=== PATIENT | female | born 1960 | race Caucasian/White ===

== ENCOUNTER 2018-01-16 16:57 | Inpatient (IN) | payer OTHER ==
[2018-01-16 17:20] VITALS: BMI 40.7
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
[2018-01-16] MEDS ORDERED: P-EPHED 60MG/TRIPROLIDI 2.5MG TABLET PO PRN (18:42)
[2018-01-16] MEDS ORDERED: MAGNESIUM CITRATE 300 ML BOTTLE PO PRN (18:42)
[2018-01-16] MEDS ORDERED: NICOTINE POLACRILEX 2 MG GUM BC PRN (18:42)
[2018-01-16] MEDS ORDERED: MENTHOL/PHENOL 1 EACH UD MM PRN (18:42)
[2018-01-16] MEDS ORDERED: guaiFENesin/D-METHORPHAN HB 10 ML UNIT-DOSE CUPS PO PRN (18:42)
[2018-01-16] MEDS ORDERED: IBUPROFEN 400 MG TABLET (FP) PO PRN (18:42)
[2018-01-16] MEDS ORDERED: MAG HYDROX/AL HYDROX/SIMETH 30 ML UNIT-DOSE CUP PO PRN (18:42)
[2018-01-16] MEDS ORDERED: MAGNESIUM HYDROX 2400MG/30ML ORAL SUSPENSION 30 ML CUP PO PRN (18:42)
[2018-01-16] MEDS: chlordiazePOXIDE HCL 25 MG CAPSULE PO PRN (19:50)
[2018-01-16] MEDS: ACETAMINOPHEN 325 MG TABLET (FP) PO PRN (19:52)
[2018-01-16 23:05] LABS: URINE APPEARANCE CLEAR; URINE BILIRUBIN NEGATIVE (<2.0 mg/dL); URINE COLOR LTYELLOW; URINE GLUCOSE (UA) NEGATIVE (NEGATIVE); URINE KETONE NEGATIVE (NEGATIVE); URINE LEUK ESTERASE NEGATIVE (NEGATIVE); URINE NITRITE NEGATIVE (NEGATIVE); URINE PROTEIN NEGATIVE (NEGATIVE)
[2018-01-16] MEDS: THIAMINE HCL 100 MG TABLET (FP) PO SCH (23:39)
[2018-01-16] MEDS: chlordiazePOXIDE HCL 25 MG CAPSULE PO SCH (23:39)
[2018-01-17] MEDS: ACETAMINOPHEN 325 MG TABLET (FP) PO PRN (01:37)
[2018-01-17] MEDS: MELATONIN 5 MG TABLETS PO PRN ×2 (01:37→22:30)
[2018-01-17] MEDS: chlordiazePOXIDE HCL 25 MG CAPSULE PO PRN (01:38)
[2018-01-17] MEDS: chlordiazePOXIDE HCL 25 MG CAPSULE PO SCH ×2 (05:54→10:38)
[2018-01-17] MEDS ORDERED: METHADONE HCL 10 MG TABLET PO ONE ×2 (09:04)
[2018-01-17] MEDS ORDERED: METHADONE HCL 40 MG DISPERSABLE TABLET ONE (10:35)
[2018-01-17] MEDS ORDERED: METHADONE HCL 10 MG TABLET ONE (10:35)
[2018-01-17] MEDS: PRENATAL VITAMINS W/ FOLIC ACID TABLET (FP) PO SCH (10:38)
--- NOTE | 2018-01-17 10:59 | PN ---
S Progress Note Note: pt states her dependence is xanax/klonopin not alcohol. pt will like her detox regimen changed to valium. Pt regimen will be changed as pt request.
[2018-01-17] MEDS ORDERED: METHADONE 120 MG, METHADONE 10 MG PO ONE (11:15)
[2018-01-17 12:01] LABS: ALBUMIN 2.7 g/dl (3.4-5.0); ALK PHOS 114 U/L (45-117); ANION GAP 6 MMOL/L (8-16); BILIRUBIN,TOTAL 0.4 mg/dL (0.2-1); BLOOD UREA NITROGEN 17 mg/dL (7-18); CALCIUM 7.9 mg/dL (8.5-10.1); CHLORIDE 105 mmol/L (98-107); CO2 27 mmol/L (21-32); CREATININE 0.9 mg/dL (0.55-1.3); GLUCOSE,RANDOM 212 mg/dL (74-106); POTASSIUM 3.9 mmol/L (3.5-5.1); SGOT/AST 24 U/L (15-37); SGPT/ALT 20 U/L (13-61); SODIUM 138 mmol/L (136-145); TOT PROT 6.7 g/dl (6.4-8.2)
[2018-01-17 12:34] LABS: HEMATOCRIT 36.8 % (32.4-45.2); MCH 32.7 pg (25.7-33.7); MCHC 35.3 g/dl (32.0-36.0); MEAN CELL VOLUME 92.6 fl (80-96); MEAN PLT VOLUME 9.6 fl (7.5-11.1); PLATELET COUNT 77 K/MM3 (134-434); RBC 3.98 M/mm3 (3.60-5.2); RDW 14.6 % (11.6-15.6)
[2018-01-17 12:50] LABS: WHITE BLOOD COUNT 1.8 K/mm3 (4.0-10.0)
--- NOTE | 2018-01-17 13:19 | PN ---
S CIWA - CIWA Score Nausea/Vomitin-No Nausea/No Vomiting Muscle Tremors: 4-Moderate,w/Arms Extend Anxiety: 3 Agitation: 3 Paroxysmal Sweats: 3 Orientation: 0-Oriented Tacttile Disturbances: 0-None Auditory Disturbances: 0-None Visual Disturbances: 0-None Headache: 0-None Present CIWA-Ar Total Score: 13 BHS Progress Note (SOAP) Subjective: agitation anxiety restless sweats body aches chills Objective: 01/17/18 13:17 Vital Signs Temperature 97.7 F 01/17/18 09:50 Pulse Rate 53 L 01/17/18 09:50 Respiratory Rate 16 01/17/18 09:50 Blood Pressure 127/73 01/17/18 09:50 O2 Sat by Pulse Oximetry (%) Laboratory Tests 01/16/18 01/17/18 01/17/18 22:00 07:50 07:50 WBC RBC Hgb Hct MCV MCH MCHC RDW Plt Count MPV Sodium 138 Potassium 3.9 Chloride 105 Carbon Dioxide 27 Anion Gap 6 L BUN 17 Creatinine 0.9 Creat Clearance w eGFR > 60 Random Glucose 212 H Calcium 7.9 L Total Bilirubin 0.4 AST 24 ALT 20 Alkaline Phosphatase 114 Total Protein 6.7 Albumin 2.7 L Urine Color Ltyellow Urine Appearance Clear Urine pH 5.0 Ur Specific [place] 1.010 Urine Protein Negative Urine Glucose (UA) Negative Urine Ketones Negative Urine Blood Negative Urine Nitrite Negative Urine Bilirubin Negative Urine Urobilinogen 2.0 H Ur Leukocyte Esterase Negative RPR Titer Nonreactive 01/17/18 08:00 WBC 1.8 L* RBC 3.98 Hgb 13.0 Hct 36.8 MCV 92.6 MCH 32.7 MCHC 35.3 RDW 14.6 Plt Count 77 L MPV 9.6 Sodium Potassium Chloride Carbon Dioxide Anion Gap BUN Creatinine Creat Clearance w eGFR Random Glucose Calcium Total Bilirubin AST ALT Alkaline Phosphatase Total Protein Albumin Urine Color Urine Appearance Urine pH Ur Specific [place] Urine Protein Urine Glucose (UA) Urine Ketones Urine Blood Urine Nitrite Urine Bilirubin Urine Urobilinogen Ur Leukocyte Esterase RPR Titer low WBC noted labs repeated aaox3 ambulating no acute distress Assessment: 01/17/18 13:19 withdrawal sx Plan: continue valium detox increase fluids f/u pending labs
[2018-01-17] MEDS: diazePAM 5 MG TABLET PO SCH ×2 (13:37→22:30)
--- NOTE | 2018-01-17 14:41 | CONSULT ---
[facility] Psychiatric Consult - Data Date of interview: 01/17/18 Admission source: [facility] Identifying data: First admission to [facility] for this 57 y/o [place] female seeking detoxification treatment on for alcohol, opioid, xanax and cocaine dependence. Patient is , a mother of six, domiciled, unemployed and supported on SSI benefits. Substance Abuse History: Confirmed by patient in this interview. Details in current [facility] report : Smoking history: Current every day smoker. Have you smoked in the past 12 months: Yes. Aproximately how many cigarettes per day: 3. Hx Chewing Tobacco Use: No. Initiated information on smoking cessation: No. - Substances Abused. Alcohol. Route: Oral. Frequency: Daily. Amount used: Liquor- 1 pint. Age of first use: 12. Date of Last Use: 01/15/18. Alprazolam (Xanax). Route: Oral. Frequency: Daily. Amount used: 55. Age of first use: 55. Date of Last Use: 01/16/18 Medical History: COPD, obesity, hepatitis C, sciatica, cirrhosis of the liver, antecedent of endocarditis and a history of orthosurgery for fracture of left wrist (deformed). Psychiatric History: Patient admits to a history of multiple psychiatric hospitalizations ([facility], [facility], [facility]) . Diagnosed with PTSD. Ms Cruz is prescribed zoloft and minipres. She endorses good adherence to her medications. Sees a psychiatrist at [facility] in [place], [place]. Patient admits to a history of multiple suicide attempts (overdose with medications in 2007 [place] Physical/Sexual Abuse/Trauma History: Severe stessors : father killed mother and then, committed suicide four years ago, one sister of a heroin overdose a few years ago. Estranged from relatives : family feud over inheritance money. Additional Comment: Urine Drug Screen Results: MONIQUE-Cocaine, BZO-Benzodiazepines , MTD-Methadone. Noted. Mental Status Exam - Mental Status Exam Alert and Oriented to: Time, Place, Person Cognitive Function: Good Patient Appearance: Unkempt (obese), Disheveled Mood: Withdrawn, Anxious Affect: Mood Congruent Patient Behavior: Fatigued, Appropriate, Cooperative Speech Pattern: Clear Voice Loudness: Normal Thought Process: Goal Oriented Thought Disorder: Not Present Hallucinations: Denies Suicidal Ideation: Denies Homicidal Ideation: Denies Insight/Judgement: Poor Sleep: Well Appetite: Good Muscle strength/Tone: Normal Gait/Station: Normal Psychiatric Findings - Problem List ([place] 1, 2,3) (1) Opioid dependence on agonist therapy Current Visit: Yes Status: Acute (2) Alcohol dependence Current Visit: Yes Status: Acute Qualifiers: Substance use status: uncomplicated Qualified Code(s): F10.20 - Alcohol dependence, uncomplicated (3) Cocaine abuse Current Visit: Yes Status: Chronic (4) Nicotine dependence Current Visit: Yes Status: Acute Qualifiers: Nicotine product type: cigarettes (5) Substance induced mood disorder Current Visit: Yes Status: Acute (6) Post traumatic stress disorder (PTSD) Current Visit: Yes Status: Chronic - Initial Treatment Plan Initial Treatment Plan: Psychoeducation. Sleep hygiene. Detoxification in progress. Resume zoloft 50 mg po daily. Side effects/benefits discussed with the patient. Patient is in agreement with this careplan. Observation.
[2018-01-17] MEDS: THIAMINE HCL 100 MG TABLET (FP) PO SCH (22:30)
[2018-01-17] MEDS ORDERED: chlordiazePOXIDE HCL 10 MG CAPSULE PO SCH (23:00)
[2018-01-18] MEDS ORDERED: METHADONE HCL 40 MG DISPERSABLE TABLET ONE (04:10)
[2018-01-18] MEDS ORDERED: METHADONE HCL 10 MG TABLET ONE (04:10)
[2018-01-18] MEDS ORDERED: METHADONE HCL 40 MG DISPERSABLE TABLET PO SCH ×2 (06:00)
[2018-01-18] MEDS: METHADONE 120 MG, METHADONE 10 MG PO SCH (06:05)
[2018-01-18] MEDS: diazePAM 5 MG TABLET PO SCH ×2 (06:06→14:49)
[2018-01-18 10:32] LABS: BASO % 0.4 % (0-2.0); EOS % 2.7 % (0-4.5); HEMATOCRIT 41.2 % (32.4-45.2); HEMOGLOBIN 13.7 GM/dL (10.7-15.3); LYMPH % 34.7 % (8-40); MCH 30.8 pg (25.7-33.7); MCHC 33.2 g/dl (32.0-36.0); MEAN CELL VOLUME 92.8 fl (80-96); MONO % 7.1 % (3.8-10.2); NEUT % 55.1 % (42.8-82.8); PLATELET COUNT 83 K/MM3 (134-434); RBC 4.44 M/mm3 (3.60-5.2); RDW 14.4 % (11.6-15.6); WHITE BLOOD COUNT 2.3 K/mm3 (4.0-10.0)
[2018-01-18] MEDS: diazePAM 5 MG TABLET PO PRN ×2 (10:47→22:08)
[2018-01-18] MEDS: PRENATAL VITAMINS W/ FOLIC ACID TABLET (FP) PO SCH (10:47)
[2018-01-18] MEDS: SERTRALINE HCL 50 MG TABLET (FP) PO SCH (10:47)
--- NOTE | 2018-01-18 11:32 | PN ---
S CIWA - CIWA Score Nausea/Vomitin-No Nausea/No Vomiting Muscle Tremors: 3 Anxiety: 2 Agitation: 1-Slight > Activity Paroxysmal Sweats: 1-Minimal Palms Moist Orientation: 0-Oriented Tacttile Disturbances: 1-Very Mild Itch/Numbness Auditory Disturbances: 1-Very Mild Visual Disturbances: 0-None Headache: 1-Very Mild CIWA-Ar Total Score: 10 BHS Progress Note (SOAP) Subjective: reported has long history of low white blood cell count that chronic pancreatitis x 3 years hepatitis c and liver cirrhosis x 5 years patient is follow up with doctor jenae for her pancreatitis and liver cirrhosis discuss alcohol related GI disorder and negative consequences patient presents tremor sweat restlessness and weak feelings Objective: 01/18/18 11:31 Vital Signs Temperature 98.1 F 01/18/18 09:39 Pulse Rate 51 L 01/18/18 09:39 Respiratory Rate 18 01/18/18 09:39 Blood Pressure 136/73 01/18/18 09:39 O2 Sat by Pulse Oximetry (%) Laboratory Last Values WBC 2.3 K/mm3 (4.0-10.0) L 01/18/18 07:30 RBC 4.44 M/mm3 (3.60-5.2) 01/18/18 07:30 Hgb 13.7 GM/dL (10.7-15.3) 01/18/18 07:30 Hct 41.2 % (32.4-45.2) 01/18/18 07:30 MCV 92.8 fl (80-96) 01/18/18 07:30 MCH 30.8 pg (25.7-33.7) 01/18/18 07:30 MCHC 33.2 g/dl (32.0-36.0) 01/18/18 07:30 RDW 14.4 % (11.6-15.6) 01/18/18 07:30 Plt Count 83 K/MM3 (134-434) L 01/18/18 07:30 MPV 9.0 fl (7.5-11.1) 01/18/18 07:30 Absolute Neuts (auto) 1.2 K/mm3 (1.5-8.0) L 01/18/18 07:30 Neutrophils % 55.1 % (42.8-82.8) 01/18/18 07:30 Lymphocytes % 34.7 % (8-40) 01/18/18 07:30 Monocytes % 7.1 % (3.8-10.2) 01/18/18 07:30 Eosinophils % 2.7 % (0-4.5) 01/18/18 07:30 Basophils % 0.4 % (0-2.0) 01/18/18 07:30 Nucleated RBC % 0 % (0-0) 01/18/18 07:30 Sodium 138 mmol/L (136-145) 01/17/18 07:50 Potassium 3.9 mmol/L (3.5-5.1) 01/17/18 07:50 Chloride 105 mmol/L (98-107) 01/17/18 07:50 Carbon Dioxide 27 mmol/L (21-32) 01/17/18 07:50 Anion Gap 6 MMOL/L (8-16) L 01/17/18 07:50 BUN 17 mg/dL (7-18) 01/17/18 07:50 Creatinine 0.9 mg/dL (0.55-1.3) 01/17/18 07:50 Creat Clearance w eGFR > 60 (>60) 01/17/18 07:50 Random Glucose 212 mg/dL (74-106) H 01/17/18 07:50 Calcium 7.9 mg/dL (8.5-10.1) L 01/17/18 07:50 Total Bilirubin 0.4 mg/dL (0.2-1) 01/17/18 07:50 AST 24 U/L (15-37) 01/17/18 07:50 ALT 20 U/L (13-61) 01/17/18 07:50 Alkaline Phosphatase 114 U/L (45-117) 01/17/18 07:50 Total Protein 6.7 g/dl (6.4-8.2) 01/17/18 07:50 Albumin 2.7 g/dl (3.4-5.0) L 01/17/18 07:50 Urine Color Ltyellow 01/16/18 22:00 Urine Appearance Clear 01/16/18 22:00 Urine pH 5.0 (5.0-8.0) 01/16/18 22:00 Ur Specific [place] 1.010 (1.010-1.035) 01/16/18 22:00 Urine Protein Negative (NEGATIVE) 01/16/18 22:00 Urine Glucose (UA) Negative (NEGATIVE) 01/16/18 22:00 Urine Ketones Negative (NEGATIVE) 01/16/18 22:00 Urine Blood Negative (NEGATIVE) 01/16/18 22:00 Urine Nitrite Negative (NEGATIVE) 01/16/18 22:00 Urine Bilirubin Negative (<2.0 mg/dL) 01/16/18 22:00 Urine Urobilinogen 2.0 mg/dL (0.2-1.0) H 01/16/18 22:00 Ur Leukocyte Esterase Negative (NEGATIVE) 01/16/18 22:00 RPR Titer Nonreactive (NONREACTIVE) 01/17/18 07:50 lab noted low calcium Assessment: 01/18/18 11:33 withdrawal sx 01/18/18 11:33 low calcium leukocytopenia Plan: continue detox begin oscal
[2018-01-18] MEDS: CALCIUM 250MG/VIT-D 125 UNITS 1 COMBO TABLET PO SCH ×2 (14:49→22:09)
[2018-01-18] MEDS: THIAMINE HCL 100 MG TABLET (FP) PO SCH (22:08)
[2018-01-18] MEDS: MELATONIN 5 MG TABLETS PO PRN (22:10)
[2018-01-18] MEDS ORDERED: chlordiazePOXIDE HCL 10 MG CAPSULE PO SCH (23:00)
[2018-01-19] MEDS ORDERED: METHADONE HCL 10 MG TABLET ONE (05:23)
[2018-01-19] MEDS ORDERED: METHADONE HCL 40 MG DISPERSABLE TABLET ONE (05:23)
[2018-01-19] MEDS: METHADONE 120 MG, METHADONE 10 MG PO SCH (05:47)
[2018-01-19] MEDS: SERTRALINE HCL 50 MG TABLET (FP) PO SCH (10:17)
[2018-01-19] MEDS: CALCIUM 250MG/VIT-D 125 UNITS 1 COMBO TABLET PO SCH ×2 (10:17→22:24)
[2018-01-19] MEDS: PRENATAL VITAMINS W/ FOLIC ACID TABLET (FP) PO SCH (10:17)
[2018-01-19] MEDS: diazePAM 5 MG TABLET PO SCH ×2 (10:17→22:24)
[2018-01-19] MEDS: ACETAMINOPHEN 325 MG TABLET (FP) PO PRN (10:19)
--- NOTE | 2018-01-19 12:30 | PN ---
BHS Progress Note (SOAP) Subjective: sweats tired Objective: 01/19/18 12:29 Vital Signs Temperature 98.1 F 01/19/18 09:17 Pulse Rate 46 L 01/19/18 09:17 Respiratory Rate 16 01/19/18 09:17 Blood Pressure 139/59 L 01/19/18 09:17 O2 Sat by Pulse Oximetry (%) aaox3 ambulating no acute distress Assessment: 01/19/18 12:30 mild withdrawal sx Plan: continue detox increase fluids d/c in am
[2018-01-19] MEDS: ALBUTEROL SO4 0.083% IH SOL 2.5 MG/3 ML VIAL.NEB. NEB PRN ×2 (15:04→22:28)
[2018-01-19] MEDS: THIAMINE HCL 100 MG TABLET (FP) PO SCH (22:24)
[2018-01-19] MEDS: MELATONIN 5 MG TABLETS PO PRN (22:25)
[2018-01-19] MEDS ORDERED: chlordiazePOXIDE HCL 10 MG CAPSULE PO SCH (23:00)
[2018-01-20] MEDS ORDERED: METHADONE HCL 10 MG TABLET ONE (04:56)
[2018-01-20] MEDS ORDERED: METHADONE HCL 40 MG DISPERSABLE TABLET ONE (04:56)
[2018-01-20] MEDS: METHADONE 120 MG, METHADONE 10 MG PO SCH (05:49)
[2018-01-20 07:25] VITALS: BP 123/64; PULSE 53; TEMP 97.9
[2018-01-20] MEDS: PRENATAL VITAMINS W/ FOLIC ACID TABLET (FP) PO SCH (09:07)
[2018-01-20] MEDS: SERTRALINE HCL 50 MG TABLET (FP) PO SCH (09:07)
[2018-01-20] MEDS: CALCIUM 250MG/VIT-D 125 UNITS 1 COMBO TABLET PO SCH (09:07)
--- NOTE | 2018-01-20 09:15 | DS ---
[facility] Detox Discharge Summary Admission Date: 01/16/18 Discharge Date: 01/20/18 - History Present History: Alcohol Dependence, Cocaine Dependence, Sedative Dependence - Physical Exam Results Vital Signs: Vital Signs Temperature 97.9 F 01/20/18 07:25 Pulse Rate 53 L 01/20/18 07:25 Respiratory Rate 18 01/20/18 07:25 Blood Pressure 123/64 01/20/18 07:25 O2 Sat by Pulse Oximetry (%) - Treatment Hospital Course: Detox Protocol Followed, Detoxed Safely, Responded well, Discharged Condition Good, Rehab Referral Accepted - Medication Discharge Medications: Ambulatory Orders Clonazepam [Klonopin] 1 mg PO BID 01/16/18 Prazosin HCl [Minipress -] 2 mg PO HS 01/16/18 Sertraline HCl [Zoloft -] 50 mg PO DAILY 01/16/18 - Diagnosis (1) Alcohol dependence Current Visit: Yes Status: Acute Qualifiers: Substance use status: uncomplicated Qualified Code(s): F10.20 - Alcohol dependence, uncomplicated (2) Leucocytosis Current Visit: Yes Status: Chronic Qualifiers: Leukocytosis type: unspecified Qualified Code(s): D72.829 - Elevated white blood cell count, unspecified (3) Nicotine dependence Current Visit: Yes Status: Chronic Qualifiers: Nicotine product type: cigarettes Substance use status: uncomplicated Qualified Code(s): F17.210 - Nicotine dependence, cigarettes, uncomplicated (4) Opioid dependence on agonist therapy Current Visit: Yes Status: Acute (5) Sedative hypnotic withdrawal Current Visit: Yes Status: Chronic Qualifiers: Complication of substance-induced condition: uncomplicated Qualified Code(s ): F13.230 - Sedative, hypnotic or anxiolytic dependence with withdrawal, uncomplicated (6) Substance induced mood disorder Current Visit: Yes Status: Acute (7) COPD (chronic obstructive pulmonary disease) Current Visit: Yes Status: Chronic (8) Cocaine abuse Current Visit: Yes Status: Chronic (9) Post traumatic stress disorder (PTSD) Current Visit: Yes Status: Chronic - AMA Did Patient Leave Against Medical Advice: No (going to her MMTP then to [facility])
[2018-01-20] MEDS ORDERED: diazePAM 5 MG TABLET PO SCH (10:00)
[2018-01-20] MEDS ORDERED: chlordiazePOXIDE HCL 10 MG CAPSULE PO SCH (23:00)
== END 2018-01-20 09:10 | disposition home or self-care (01) | DRG 773 ==
LOC: YASAS 16:57 → Y6N 18:54
PROVIDERS: ADMIT Neuromusculoskeletal Medicine & OMM; ATTEND Neuromusculoskeletal Medicine & OMM
PROC: HZ2ZZZZ Detoxification Services for Substance Abuse Treatment (ICD-10-PCS; principal; 2018-01-16)
DX: F10.230 Alcohol dependence with withdrawal, uncomplicated (principal); F11.20 Opioid dependence, uncomplicated; F13.230 Sedative, hypnotic or anxiolytic dependence with withdrawal, uncomplicated; F14.10 Cocaine abuse, uncomplicated; F43.10 Post-traumatic stress disorder, unspecified; D72.829 Elevated white blood cell count, unspecified; J44.9 Chronic obstructive pulmonary disease, unspecified; B18.2 Chronic viral hepatitis C; E66.9 Obesity, unspecified; Z68.41 Body mass index [BMI] 40.0-44.9, adult; K74.60 Unspecified cirrhosis of liver
CPT/HCPCS: 36415; 80053; 81003; 85025; 85027; 86593; 94640